=== PATIENT | female | born 1955 ===

== ENCOUNTER 2024-07-28 05:45 | Day surgery (SDC) | payer OTHER ==
[2024-07-28] MEDS ORDERED: FLUMAZENIL 0.5 MG/5 ML ML IV STA (08:53)
[2024-07-28] MEDS ORDERED: fentaNYL CITRATE 50 MCG/ML AMPUL IV PUSH ONE (09:00)
[2024-07-28] MEDS ORDERED: DIPHENHYDRAMINE HCL 50 MG/ML VIAL 1ML IV ONE (09:00)
[2024-07-28] MEDS ORDERED: MIDAZOLAM HCL 2 MG/2 ML VIAL IV ONE (09:00)
== END 2024-07-28 10:20 | disposition home or self-care (01) ==
LOC: AMB-ENDOS 05:45
PROVIDERS: ATTEND Colon & Rectal Surgery
DX: C20 Malignant neoplasm of rectum (principal)